=== PATIENT | male | born 1950 | race Caucasian/White ===

== ENCOUNTER 2017-04-16 05:24 | Day surgery (SDC) | payer OTHER ==
[~2017-04-16] VITALS: Ht 188 cm; Wt 88.5 kg
--- NOTE | ~2017-04-16 | O ---
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 PROCEDURE: Left lower lid ectropion repair with transconjunctival left lower lid and cheek lift. SURGEON: Daniel Johnson MD CELLULAR EQUIPMENT REPAIRER: None. ANESTHESIA: MAC. COMPLICATIONS: None. 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 He has undergone prior left lower lid reconstruction and resuspension. He presents today for a left lower lid and cheek procedure in order to attempt to improve his ocular surface milieu and reduce his risk for loss of the eye. Informed consent was obtained to include, but not limited to the potential risk for loss of vision, bleeding, infection, failure to improve the problem, and the potential need for further surgery or treatment. DESCRIPTION OF PROCEDURE: The patient was taken to the operating room where 2% Xylocaine with epinephrine mixed with equal parts of 0.75% Marcaine with Wydase was administered transcutaneously and transconjunctivally to the left lower lid, the left lateral canthus, the left cheek and the left infratemporal fossa. The patient was subsequently prepped and draped in the usual sterile fashion. The left lateral canthus was then clamped with a Boucher clamp. A sharp canthotomy and cantholysis was then performed. The previously placed Prolene sutures were identified, cut and removed. A transconjunctival incision was then made below the inferior border of the [address] [place] [address] OPERATIVE REPORT Name: CODEY BARRAZA Room #: DEP [facility].#: [id number] Admission: 04/16/17 Attend Phys: Daniel Johnson MD Discharge: 04/16/17 Date of : 52 Report #: [id number] tarsal plate. The dissection was then carried out into the premalar tissues. The lower lid and cheek tissues were then resuspended with interrupted mattress Prolene sutures off the periosteum. A tarsal strip was then prepared laterally removing the lash bearing portion of the redundant lid margin and the redundant tarsal plate. The tarsal strip was then resuspended from the internal portion of the lateral orbital tubercle with interrupted 5-0 Prolene sutures. The subcutaneous structures and the skin were then closed with interrupted 6-0 plain gut sutures. The wounds were then cleaned and dressed with erythromycin ophthalmic ointment. The patient subsequently transported to the recovery area having tolerated the procedures well with no anesthetic or operative complications being noted. <ELECTRONICALLY SIGNED> By: Daniel Johnson MD 04/30/17 [id number] Daniel Johnson MD /nt
[~2017-04-16 05:24] MED LIST: ATORVASTATIN CA40 MG PO; COZAAR 50 MG TA50 M2 PO; ERYTHROMYCIN E3.5 G1 OPHTHALMIC; HYDROCODONE-AP1 EAC6 PO; IBUPROFEN 200200 M1 PO; LEVOTHYROXINE0.2 M1 PO; LISINOPRIL20 MG PO; MIRALAX255 GM PO; PEPCID20 MG PO; REFRESH CLASSI1 EACH OP; SENECOT PO; SYNTHROID88 MCG PO; SYSTANE GEL EYE10 ML OPHTHALMIC; VITAMIN D-32000 UNIT PO; VITAMIN D35000 UNIT PO
[2017-04-16 13:38] VITALS: BP 167/91
== END 2017-04-16 14:35 | disposition home or self-care (01) ==
LOC: TBA 05:24 → OR 05:24
DX: H02.105 Unspecified ectropion of left lower eyelid (principal); H02.535 Eyelid retraction left lower eyelid; H02.205 Unspecified lagophthalmos left lower eyelid; H18.9 Unspecified disorder of cornea; I10 Essential (primary) hypertension; E03.9 Hypothyroidism, unspecified; E78.00 Pure hypercholesterolemia, unspecified; Z85.828 Personal history of other malignant neoplasm of skin; Z85.850 Personal history of malignant neoplasm of thyroid; Z98.890 Other specified postprocedural states; Z79.899 Other long term (current) drug therapy
CPT/HCPCS: 50010; 50101; 50386; 50398; 51636; 56527; 56531; 62110; 62850; 70005